=== PATIENT | male | born 1990 | race Caucasian/White ===

== ENCOUNTER 2023-01-20 07:11 | Emergency (ER) | payer OTHER ==
[~2023-01-20] VITALS: Ht 167.6 cm; Wt 47.0 kg
[2023-01-20] MEDS ORDERED: pantoprazole 40 MG vial IV ONE (08:15)
[2023-01-20] MEDS ORDERED: pantoprazole 40MG/NS 100ML BAG 100 ML IV ONE (08:20)
[2023-01-20 08:42] LABS: BASOPHILS % (AUTO) 1.6 % (0-1); EOSINOPHILS % (AUTO) 1.7 % (0-6); HEMATOCRIT 32.6 % (42.0-52.0); HEMOGLOBIN 10.2 g/dl (14.0-17.9); LYMPHOCYTES # (AUTO) 1.1 X10'3 (1.1-4.8); LYMPHOCYTES % (AUTO) 42.7 % (21-51); MEAN CORPUSCULAR HGB CONC 31.1 g/dL (33.0-36.5); MEAN CORPUSCULAR VOLUME 83.4 FL (78-98); MEAN PLATELET VOLUME 6.7 FL (7.4-10.4); MONOCYTES # (AUTO) 0.4 X10'3 (0-0.9); MONOCYTES % (AUTO) 14.3 % (2-12); NEUTROPHILS # (AUTO) 1.1 X10'3 (1.8-7.7); NEUTROPHILS % (AUTO) 39.7 % (42-75); PLATELET COUNT 319 X10'3 (140-440); RED BLOOD COUNT 3.91 X10'6 (4.70-6.10); RED CELL DISTRIBUTION WIDTH 20.2 % (11.5-14.5); WHITE BLOOD COUNT 2.7 X10'3 (4.5-11.0)
[2023-01-20 09:09] LABS: ALANINE AMINOTRANSFERASE 33 U/L (12-78); ALBUMIN 3.2 G/DL (3.4-5.0); ALKALINE PHOSPHATASE 74 IU/L (46-116); ANION GAP 13 (8-16); ASPARTATE AMINO TRANSFERASE 44 U/L (10-37); BILIRUBIN,TOTAL 0.6 MG/DL (0.1-1.0); BLOOD UREA NITROGEN 10 MG/DL (7-18); BUN/CREATININE RATIO 16.9 (10.0-20.0); CALCIUM 8.3 MG/DL (8.5-10.1); CHLORIDE 100 MMOL/L (99-107); CREATININE 0.59 MG/DL (0.60-1.10); GLUCOSE 62 MG/DL (70-104); SODIUM 139 MMOL/L (135-145); TOTAL CARBON DIOXIDE 26.2 MMOL/L (24-32); TOTAL PROTEIN 6.3 G/DL (6.4-8.2); eGFR > 90 ML/MIN
[2023-01-20 09:12] LABS: POTASSIUM 2.9 MMOL/L (3.5-5.1)
[2023-01-20] MEDS ORDERED: potassium Cl 20 mEq SR tablet PO ONE (09:15)
[2023-01-20 09:51] LABS: ANISOCYTOSIS 3+; PLATELET ESTIMATE NORMAL; TOTAL CELLS COUNTED 100
[2023-01-20 09:52] LABS: HYPOCHROMASIA 1+; LARGE PLATELETS MODERATE
[2023-01-20 09:55] VITALS: BP 109/70
[2023-01-20] MEDS ORDERED: fentaNYL/PF 50MCG/1 ML 2ML syringe ONE ×2 (09:59→11:01)
[2023-01-20] MEDS ORDERED: LIDOcaine Viscous 15ml cup ONE (10:00)
[2023-01-20] MEDS ORDERED: MIDAZolam 1 MG/ML 5ML VIAL ONE ×2 (10:00→11:01)
[2023-01-20] MEDS ORDERED: potassium Cl 20mEq/100mL bag 100 ML IV ONE (10:00)
[2023-01-20 11:14] VITALS: BP 113/78
[2023-01-20 11:24] VITALS: BP 104/60
[2023-01-20] MEDS ORDERED: triamcinolone acetonide 40mg/ml inj ONE (11:29)
[2023-01-20 11:34] VITALS: BP 92/59
[2023-01-20] MEDS ORDERED: potassium CL 10mEq/100ml bag 100 ML IV SCH (12:00)
--- NOTE | 2023-01-20 12:04 | NUR ---
PATIENT BACK FROM GI LAB AT THIS TIME, REPORT RECEIVED FROM RN.
[2023-01-20] MEDS ORDERED: Potassium Cl inj 40 MEQ in sodium chloride 0.45% 500ml 500 ML IV ONE (12:05)
[2023-01-20] MEDS ORDERED: OMEP40CA21 PO (12:18)
== END 2023-01-20 16:49 | disposition home or self-care (01) ==
LOC: ER 07:11
DX: K22.2 Esophageal obstruction (principal); K29.70 Gastritis, unspecified, without bleeding; K21.9 Gastro-esophageal reflux disease without esophagitis
CPT/HCPCS: 43239; 43248; 43249; 80053; 85007; 85025; 96365; 96366; 96367; 99152; 99285; C1726; C9113; J2250; J3010; J3480; J3490; J7030; Z7512; A4620; J3301